=== PATIENT | male | born 1940 | race Caucasian/White ===

== ENCOUNTER → 2017-04-10 | Day surgery (SDC) | payer OTHER ==
[~2017-04-10] MED LIST: BUPIVACAINE/EPINEPHRINE 0.25% 50 ML VIAL ONE; LIDOCAINE 0.5%/EPINEPHrine 1:200,000 SOLN 50 ML VIAL ONE; MIDAZOLAM HCL 2 MG/2 ML VIAL ONE; ONDANSETRON HCL 4 MG/2 ML VIAL IV PUSH ONE; PROPOFOL 200 MG/20 ML AMP IV ONE; ceFAZolin 2 GM PREMIX 50 ML ONE
--- NOTE | 2017-04-10 11:43 | TN ---
cc: DARRYL WARNER M.D. DATE OF SURGERY: 04/10/2017 PREOPERATIVE DIAGNOSIS 3 cm right axillary mass. POSTOPERATIVE DIAGNOSIS 3 cm right axillary mass. PROCEDURE PERFORMED Wide local excision 3 cm right axillary mass, 3 x 5 cm. SURGEON Darryl Warner. COOKER CASING FIOR Garza. ANESTHESIA General LMA. COMPLICATIONS None. INDICATION FOR PROCEDURE Mr. Burns is a pleasant 76-year-old gentleman who noticed an enlarging mass in his right axilla. He was seen and evaluated and found to have a fairly large mass in his right axilla that appeared to be in the subcutaneous fat. It was unsure if this was a sebaceous cyst, a lipoma, or perhaps an enlarged lymph node. Excisional biopsy was recommended for confirmation. Risks and benefits of an excisional biopsy was discussed with him and he was agreeable. DETAILS OF PROCEDURE The patient was identified, brought to the operating room and placed supine on the operating table. After adequate general anesthesia was achieved with LMA, the right axilla was then prepped and draped in a standard surgical fashion. 0.25% Marcaine was injected in the skin and subcutaneous tissue directly overlying the mass. An elliptical 3 x 5 cm incision was used to include the overlying skin around the mass. Subcutaneous fat was then carefully dissected with electrocautery Bovie with generous margins of normal fatty tissue around the mass. The mass was excised in toto without disrupting it. A short stitch was placed superior, a long stitch placed lateral, and the mass was sent to pathology for analysis. The wound was copiously irrigated with normal saline solution. The wound was then closed in two layers using 3-0 and 4-0 Vicryl. Sterile dressings were applied and the patient was awakened and brought to Recovery in stable condition. Please note the FIOR first assistant manager was medically necessary due to her specialized surgical skills and extensive knowledge of my surgical technique. MD SIVA Pierre/ERIKA /11:21 AM /11:34 AM MIKE
== END | disposition home or self-care (01) ==
LOC: ESDC 08:23
PROVIDERS: ATTEND Surgery Trauma Surgery
DX: D23.5 Other benign neoplasm of skin of trunk (principal)
CPT/HCPCS: 00400; 21552; 88305; J0690; J2250; J2405; J3010; 88307

== ENCOUNTER → 2017-07-27 | Outpatient (CLI) | payer MEDICARE ==
[~2017-07-27] MED LIST changes: -BUPIVACAINE/EPINEPHRINE 0.25% 50 ML VIAL ONE; +ECASA81 PO; +GABA300C5 PO; +GLIP5TAB8 PO; +HYDR-3366 PO; -LIDOCAINE 0.5%/EPINEPHrine 1:200,000 SOLN 50 ML VIAL ONE; +LOSA25TA PO; +METF500T PO; -MIDAZOLAM HCL 2 MG/2 ML VIAL ONE; -ONDANSETRON HCL 4 MG/2 ML VIAL IV PUSH ONE; -PROPOFOL 200 MG/20 ML AMP IV ONE; +SIMV40TA PO; -ceFAZolin 2 GM PREMIX 50 ML ONE
[2017-07-27 13:13] LABS: AUTOMATED NEUTROPHIL # 6.4 TH/MM3 (1.8-7.7); BASOPHIL % 0.3 % (0.0-2.0); EOSINOPHIL # 0.1 TH/MM3 (0-0.4); EOSINOPHIL % 0.7 % (0.0-4.0); HEMATOCRIT 45.4 % (39.0-51.0); HEMOGLOBIN 15.8 GM/DL (13.0-17.0); LYMPH % 25.7 % (9.0-44.0); LYMPHOCYTE # 2.5 TH/MM3 (1.0-4.8); MEAN CELL VOLUME 85.8 FL (80.0-100.0); MEAN CORPUSCULAR HEMOGLOBIN 29.8 PG (27.0-34.0); MEAN CORPUSCULAR HGB CONC 34.7 % (32.0-36.0); MONOCYTE # 0.8 TH/MM3 (0-0.9); NEUT % 65.3 % (16.0-70.0); PLATELET COUNT 245 TH/MM3 (150-450); RED BLOOD COUNT 5.29 MIL/MM3 (4.50-5.90); RED CELL DISTRIBUTION WIDTH 12.3 % (11.6-17.2); WHITE BLOOD COUNT 9.9 TH/MM3 (4.0-11.0)
[2017-07-27 13:24] LABS: INTERNATIONAL NORMALIZED RATIO 1.1 RATIO; PROTHROMBIN TIME - PATIENT 11.2 SEC (9.8-11.6)
[2017-07-27 13:26] LABS: BILIRUBIN, URINE NEG (NEG); BLOOD, URINE NEG (NEG); GLUCOSE,URINE TRACE mg/dL (NEG); HYALINE CAST, URINE 1 /lpf (RARE); KETONE, URINE NEG (NEG); MUCUS URINE MOD /lpf (OCC); NITRITE,URINE NEG (NEG); PH, URINE 5.5 (5.0-8.5); URINE COLOR YELLOW (YELLW/STRAW); URINE LEUKOCYTE ESTERASE NEG (NEG)
[2017-07-27 13:41] LABS: ALBUMIN 3.7 GM/DL (3.4-5.0); AST (GOT) 13 U/L (15-37); BICARBONATE 30.6 MEQ/L (21.0-32.0); BLOOD UREA NITROGEN 21 MG/DL (7-18); CHLORIDE 99 MEQ/L (98-107); CREATININE 0.96 MG/DL (0.60-1.30); GLOMERULAR FILTRATION RATE 76 ML/MIN (>89); GLUCOSE,FASTING 207 MG/DL (74-99); SODIUM (NA) 137 MEQ/L (136-145)
[2017-07-27 13:42] LABS: ALT (GPT) 25 U/L (12-78)
[2017-07-27 13:45] LABS: ALKALINE PHOSPHATASE 74 U/L (45-117); TOTAL BILIRUBIN ADULT 0.8 MG/DL (0.2-1.0); TOTAL PROTEIN 6.9 GM/DL (6.4-8.2)
--- NOTE | 2017-07-27 14:24 | RADRPT ---
EXAM DATE/TIME: 07/27/2017 13:25 [facility] COMPARISON: No previous studies available for comparison. INDICATIONS : Evaluate for pneumonia, pneumothorax, or communicable disease. Pre op for back surgery. MEDICAL HISTORY : Diabetes. SURGICAL HISTORY : None. ENCOUNTER: Initial ACUITY: 1 day PAIN SCORE: 0/10 LOCATION: Bilateral chest FINDINGS: PA and lateral views of the chest demonstrate the lungs to be symmetrically aerated without evidence of mass, infiltrate or effusion. Eventration of the right hemidiaphragm. The cardiomediastinal conto urs are unremarkable. Osseous structures are intact. CONCLUSION: No acute disease. Harinder Nichole Jr., MD on July 27, 2017 at 14:21 Board Certified Radiologist. This report was verified electronically.
--- NOTE | 2017-07-28 10:25 | EKG ---
Date Performed: 07/27/2017 Time Performed: 13:05:10 PTAGE: 77 years EKG: Sinus rhythm Anterolateral T wave changes are nonspecific Borderline ECG NO PREVIOUS TRACING DOCTOR: Alonzo Aviles Interpretating Date/Time 07/28/2017 10:22:59
== END ==
LOC: CPRE 11:51
PROVIDERS: ATTEND Neurological Surgery
DX: Z01.812 Encounter for preprocedural laboratory examination (principal); Z01.811 Encounter for preprocedural respiratory examination; Z01.818 Encounter for other preprocedural examination; Z79.01 Long term (current) use of anticoagulants; M51.36 Other intervertebral disc degeneration, lumbar region; M43.16 Spondylolisthesis, lumbar region; M71.38 Other bursal cyst, other site; Z01.810 Encounter for preprocedural cardiovascular examination
CPT/HCPCS: 36415; 71046; 80053; 81001; 85025; 85610; 85730; 87640; 87641; 93005

== ENCOUNTER 2017-07-31 07:19 | Inpatient (IN) | payer MEDICARE ==
[~2017-07-31] VITALS: Ht 177.8 cm; Wt 85.5 kg
[~2017-07-31 07:19] MED LIST changes: -HYDR-3366 PO
[2017-07-31] MEDS ORDERED: VANCOMYCIN 1000 MG/NS 250 ML ON-CALL IV SCH ×2 (08:30)
[2017-07-31] MEDS ORDERED: LACTATED RINGER'S 1000 ML IV PRN (08:30)
[2017-07-31] MEDS ORDERED: POVIDONE IODINE 5% (ANTISEPSIS KIT) 4 APPLICATIONS EACH NARE PRN (08:30)
[2017-07-31] MEDS ORDERED: SODIUM CHLOR 0.9% 1000 ML INJ 1,000 ML IV SCH (08:30)
[2017-07-31] MEDS ORDERED: SODIUM CHLORID 0.9% 500 ML IV PRN (08:30)
[2017-07-31] MEDS ORDERED: METOPROLOL TARTRATE 25 MG TAB PO PRN (08:30)
[2017-07-31] MEDS ORDERED: CHLORHEXIDINE GLUCONATE 2 % 1 PACK (2 CLOTHS) TOPICAL PRN (08:30)
[2017-07-31] MEDS ORDERED: methylPREDNISolone ACETATE 40 MG/ML VIAL ONE (09:47)
[2017-07-31] MEDS ORDERED: THROMBIN (TOPICAL) 5,000 UNIT VIAL ONE (09:47)
[2017-07-31] MEDS ORDERED: GELFOAM SIZE 100 ONE (09:47)
[2017-07-31] MEDS ORDERED: BUPIVACAINE/EPINEPHRINE 0.5% PF 30 ML VIAL ONE (09:47)
[2017-07-31] MEDS ORDERED: VANCOMYCIN HCL 1000 MG VIAL ONE (09:47)
[2017-07-31] MEDS ORDERED: ONDANSETRON HCL 4 MG/2 ML VIAL IV ONE (12:00)
[2017-07-31] MEDS ORDERED: LIDOCAINE HCL 1% PF 5 ML SYRINGE OTHER ONE (12:00)
[2017-07-31] MEDS ORDERED: DEXAMETHASONE SOD PHOS 4 MG/ML VIAL IV ONE (12:00)
[2017-07-31] MEDS ORDERED: ROCURONIUM INJ 50 MG/5 ML SYRINGE IV PUSH ONE (12:00)
[2017-07-31] MEDS ORDERED: PHENYLEPH/NS 1000 MCG/10 ML SYR IV ONE (12:00)
[2017-07-31] MEDS ORDERED: LACTATED RINGER'S 1000 ML INJ 2,000 ML IV ONE (12:00)
[2017-07-31] MEDS ORDERED: PROPOFOL 200 MG/20 ML AMP IV ONE (12:00)
[2017-07-31] MEDS ORDERED: SUGAMMADEX SODIUM 200 MG/2 ML VIAL IV PUSH ONE (13:01)
[2017-07-31] MEDS ORDERED: HYDR-3366 PO (13:13)
--- NOTE | 2017-07-31 13:14 | PD.OP ---
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 endotracheal by Eder higgins Surgeon: Feliz Lauren M.D. Transmitter Supervisor(s): Nina Clay Operation and Findings: Following administration of general endotracheal anesthesia, patient received vancomycin 1 g intravenously. Sequential compression devices were placed for DVT prophylaxis. He was then turned in prone position on Danny frame and the Jc table and all pressure points adequately padded. The lumbar region was then shaved and prepped with a Betadine and ChloraPrep. Sterile draping undertaken with Ioban. Midline incision overlying the L5-S1 level was then made after infiltrating the skin with 0.5% Marcaine with epinephrine solution. The skin incision was made extending down through the fascia and then using the subperiosteal plane on the right side the muscular attachments to the spinous process and lamina were detached. Intraoperative fluoroscopy was used for level confirmation and further dissection undertaken using microtechnique with microscope magnification. The inferior portion of the L5 and superior portion of the S1 lamina were then drilled out and the underlying ligamentum flavum also removed. There was facet arthropathy noted and the medial portion of facet was also resected and synovial cyst was identified compressing on the thecal sac along the exiting nerve root in the foramen and adherent to the dura. The cyst was resected and the lateral recess and foramen decompressed. Epidural venous stasis which he with the bipolar cautery along with Gelfoam and thrombin and bone wax used at the laminotomy edges for hemostasis. The area was then copiously irrigated with antibiotic solution. Depo-Medrol 40 mg was also injected in the epidural space. The retractors removed and the muscle fascia proximal using 2-0 Vicryl interrupted stitches. 3-0 Vicryl subcuticular stitches were also placed in an interrupted fashion and planned skin closure was with Mastisol and Steri-Strips. A sterile dressing was then applied and the patient then turned in the supine position and extubated and taken to recovery room in stable condition. There were no intraoperative complications and all sponge and needle count was correct at the end of the procedure. Estimated blood loss about 15 ml. Feliz Lauren MD Jul 31, 2017 13:13
[2017-07-31] MEDS ORDERED: DO NOT ADM ANY ANTICOAGULANT DRUGS PRN (13:26)
[2017-07-31] MEDS ORDERED: MIDAZOLAM HCL 2 MG/2 ML VIAL ONE (13:30)
--- NOTE | 2017-07-31 13:41 | RADRPT ---
EXAM DATE/TIME: 07/31/2017 11:55 [facility] COMPARISON: No previous studies available for comparison. INDICATIONS : Level localization for L5/ S1 laminectomy. MEDICAL HISTORY : Unobtainable. SURGICAL HISTORY : Unobtainable. ENCOUNTER: Initial ACUITY: 1 day PAIN SCORE: Non-responsive. LOCATION: Lumbar spine. FINDINGS: Single lateral view of the lumbar spine. Assuming 5 lumbar type vertebral bodies, the radiopaque eduardo ers are at the L5-S1 level. Vertebral body heights are intact. CONCLUSION: 1. Radiopaque Marker at L5-S1 level, as above. Bryce Lundberg MD on July 31, 2017 at 13:25 Board Certified Radiologist. This report was verified electronically.
[2017-07-31] MEDS ORDERED: *morphine SULFATE 10 MG/ML PERIprocedure ONLY ONE (13:53)
[2017-07-31 15:11] VITALS: BP 143/76; PULSE 80; RESP 16; TEMP 97.8; O2SAT 98
== END 2017-07-31 15:20 | disposition home or self-care (01) | DRG 520 ==
LOC: HSDI 07:19
PROVIDERS: ADMIT Neurological Surgery; ATTEND Neurological Surgery
PROC: 01NB0ZZ Release Lumbar Nerve, Open Approach (ICD-10-PCS; 2017-07-31)
PROC: 0MBD0ZZ Excision of Lower Spine Bursa and Ligament, Open Approach (ICD-10-PCS; 2017-07-31)
PROC: 00NY0ZZ Release Lumbar Spinal Cord, Open Approach (ICD-10-PCS; principal; 2017-07-31 11:34)
DX: M71.38 Other bursal cyst, other site (principal); E11.9 Type 2 diabetes mellitus without complications; Z79.84 Long term (current) use of oral hypoglycemic drugs; M48.00 Spinal stenosis, site unspecified; M54.10 Radiculopathy, site unspecified; I10 Essential (primary) hypertension; M54.5 Low back pain; Z85.46 Personal history of malignant neoplasm of prostate; Z92.21 Personal history of antineoplastic chemotherapy
CPT/HCPCS: 72020; 76000; 86850; 86900; 86901; 86920; J1030; J1100; J2250; J2270; J2370; J2405; J3010; J3370; J7050; J7120